=== PATIENT | female | born 1960 | race African-American/Black ===

== ENCOUNTER 2018-01-05 14:18 | Emergency (ER) | payer MEDICAID ==
[~2018-01-05] VITALS: Ht 162.6 cm; Wt 103.4 kg
[~2018-01-05 14:18] MED LIST: AZITHROMYCIN250 MG PO; DEBROX15 M1 RIGHT EAR; IBUPROFEN600 MG ORAL; IBUPROFEN600 MG PO; IBUPROFEN800 MG ORAL; NKM; NORCO 5-325 TA1 EACH ORAL; PHENERGAN/CODE120 ML PO; SILVADENE20 GM TP; UNKNOWN BP MED
[2018-01-05] MEDS ORDERED: traMADol 50mg tab ORAL ONE (15:00)
--- NOTE | 2018-01-05 15:18 | Emergency Room Report ---
History of Present Illness General Chief Complaint: Lower Extremity Injury Source: Patient Present Illness HPI 57-year-old female presents to the emergency department complaining of 10 out of 10 in severity localized pain to the right great toe since 4 days ago. Patient states that she is not sure if she stubbed her toe or not. Patient reports some mild swelling she states that she attempted to splint her foot herself. Pt. reports visible bruising. She denies history of diabetes or gout. Denies calf pain. Denies fevers or chills or recent open wounds in the area. Denies swelling or tenderness about the cuticle lines. Pain exacerbated with walking/ standing. Allergies: Coded Allergies: PENICILLINS (Verified Allergy, Severe, Anaphylaxis, 06/23/12) ASPIRIN (Verified Allergy, Intermediate, DYSTONIA, 06/23/12) ACETAMINOPHEN (Verified Adverse Reaction, Unknown, GI UPSET, 12/06/14) Patient History Past Medical History: see triage record Past Surgical History: none Pertinent Family History: none Now: No Reviewed Nursing Documentation: PMH: Agreed; PSxH: Agreed Nursing Documentation-PMH Past Medical History: No History, Except For Hx Hypertension: Yes Hx Pacemaker: No Hx Asthma: No Hx COPD: No Hx Diabetes: No Hx Cancer: No Hx Gastrointestinal Problems: Yes Hx Dialysis: No Hx Neurological Problems: No Hx Cerebrovascular Accident: No Hx Seizures: No Review of Systems All Other Systems: negative except mentioned in HPI Physical Exam Vital Signs Date Time Temp Pulse Resp B/P (MAP) Pulse Ox O2 Delivery O2 Flow Rate FiO2 01/05/18 14:34 98.6 82 16 114/79 99 Room Air 98.6 Sp02 EP Interpretation: reviewed, normal General Appearance: no apparent distress, alert, GCS 15, non-toxic Head: normocephalic, atraumatic ENT: hearing grossly normal, normal voice Neck: full range of motion Respiratory: chest non-tender, lungs clear, normal breath sounds, speaking full sentences Cardiovascular #1: regular rate, rhythm, no edema, normal capillary refill Musculoskeletal: back normal, normal range of motion, tender - TTP to the base of the Right great toe, bruising noted dorsally Neurologic: alert, oriented x3, responsive, motor strength/tone normal, sensory intact, speech normal, grossly normal Psychiatric: judgement/insight normal Skin: no rash, warm/dry, well hydrated, other - contusion to the base of the right great toe. Lymphatic: no adenopathy Medical Decision Making PA Attestation Dr. Recinos is my supervising Physician whom patient management has been discussed with. Diagnostic Impression: Primary Impression: Sprain of toe Qualified Codes: S93.509A - Unspecified sprain of unspecified toe(s), initial encounter ER Course 57-year-old female presents to the emergency department complaining of 10 out of 10 in severity localized pain to the right great toe since this morning. Patient states that she is not sure if she stubbed her toe or not. Patient reports some mild swelling she states that she attempted to splint her foot herself. Pt. reports visible bruising. She denies history of diabetes or gout. Denies fevers or chills or recent open wounds in the area. Denies swelling or tenderness about the cuticle lines. Pain exacerbated with walking/ standing. Ddx considered but are not limited to Fracture, dislocation, contusion, Sprain/ Strain/Spasm, arthritis, gout just to name a few. Vital signs: are WNL, pt. is afebrile H&PE are most consistent with musculoskeletal injury will perform imaging to r/ o fractures/dislocations. - no superficial sensitivity, i do not suspect gout at this time, no increased temperature to palpation. ORDERS: - X-ray Right foot - negative for fx, Dislocation, or significant soft tissue injury, per preliminary read in ED, and signed by JANET Milian, my supervising physician has reviewed, and agrees with my interpretation. ED INTERVENTIONS: - Tramadol PO -Cast Shoe ( Hard Sole) applied by unit aide tech. Pt. remains neurovascularly intact. --Patient is provided with a cane and instructed on its use DISCHARGE: At this time pt. is stable for d/c to home. Will provide printed patient care instructions, and any necessary prescriptions. Care plan and follow up instructions have been discussed with the patient prior to discharge. Other X-Ray Diagnostic Results Other X-Ray Diagnostic Results : X-Ray ordered: Xray Foot-Right # of Views/Limited Vs Complete: 3 View Indication: Pain EP Interpretation: Yes JANET Xray: Interpretation reviewed, by supervising MD, and agrees with findings. Interpretation: no dislocation, no soft tissue swelling, no fractures Impression: No acute disease Electronically Signed by: Tessy Milian PA-C Last Vital Signs Date Time Temp Pulse Resp B/P (MAP) Pulse Ox O2 Delivery O2 Flow Rate FiO2 01/05/18 15:04 98.6 01/05/18 14:34 82 16 114/79 99 Room Air Disposition: HOME, SELF-CARE Condition: Stable Scripts Ibuprofen* (MOTRIN*) 600 Mg Tablet 600 MG ORAL THREE TIMES A DAY, #20 TAB 0 Refills Prov: Tessy Milian 01/05/18 Referrals: [facility],REFERRING (PCP) Patient Instructions: Foot Sprain Additional Instructions: Take medications as directed. Follow up with a Primary Care Provider in 3-5 days, even if your symptoms have resolved. --Please review list of primary care clinics, if you do not already have a primary care provider Return sooner to ED if new symptoms occur, or current symptoms become worse. - Please note that this Emergency Department Report was dictated using dinCloudampoule filler and sealer technology software, occasionally this can lead to erroneous entry secondary to interpretation by the dictation equipment. Tessy Milian Jan 05, 2018 15:18
[2018-01-05] MEDS ORDERED: IBUPROFEN600 MG ORAL (15:46)
[2018-01-05 16:05] VITALS: BP 114/79
--- NOTE | 2018-01-05 17:01 | Diagnostic Imaging Report ---
Indication: Pain, status post fall Technique: 3 views right foot Comparison: none Findings: No acute fractures. No dislocations. The joint spaces are preserved. There is a small plantar spur Impression: Negative
== END 2018-01-05 16:05 | disposition home or self-care (01) ==
LOC: EMR 15:00
DX: S93.501A Unspecified sprain of right great toe, initial encounter (principal); X58.XXXA Exposure to other specified factors, initial encounter; Y93.9 Activity, unspecified; Y92.9 Unspecified place or not applicable; I10 Essential (primary) hypertension; Z88.0 Allergy status to penicillin; Z88.6 Allergy status to analgesic agent
CPT/HCPCS: 99283

== ENCOUNTER 2018-06-14 13:53 | Emergency (ER) | payer MEDICAID ==
[~2018-06-14] VITALS: Ht 160 cm; Wt 90.7 kg
--- NOTE | 2018-06-14 14:32 | NUR ---
ED Nurse Note: Pt came in after surgery on 06/09/18, edema noted on the right leg. Pt is complaining of pain in the rt leg. A + O x4. Ambulatory.
[2018-06-14 14:42] VITALS: BP 121/82
[2018-06-14] MEDS ORDERED: traMADol 50mg tab ORAL ONE (14:45)
--- NOTE | 2018-06-14 15:04 | NUR ---
ED Nurse Note: Pt went down to radiology.
--- NOTE | 2018-06-14 15:04 | Emergency Room Report ---
History of Present Illness General Chief Complaint: Edema Source: Patient (Murali Bowling) Present Illness HPI 58-year-old female patient presents the ER complaining of right foot pain and swelling for the past 4 days. Reports symptoms began after her colonoscopy. Denies calf pain. Denies taking blood thinner medication. Denies recent travel. Denies acute injury or trauma. Denies fever, chest pain, shortness of breath. Denies other acute symptoms. Reports pain with ambulation. Denies chest pain. Denies history of CHF. Denies breathing difficulties. (Murali Bowling) Allergies: Coded Allergies: PENICILLINS (Verified Allergy, Severe, Anaphylaxis, 06/23/12) ASPIRIN (Verified Allergy, Intermediate, DYSTONIA, 06/23/12) ACETAMINOPHEN (Verified Adverse Reaction, Unknown, GI UPSET, 12/06/14) Patient History Past Medical History: see triage record Now: No Reviewed Nursing Documentation: PMH: Agreed; PSxH: Agreed (Murali Bowling) Nursing Documentation-PMH Past Medical History: No History, Except For Hx Hypertension: Yes Hx Pacemaker: No Hx Asthma: No Hx COPD: No Hx Diabetes: No Hx Cancer: No Hx Gastrointestinal Problems: Yes Hx Dialysis: No Hx Neurological Problems: No Hx Cerebrovascular Accident: No Hx Seizures: No (Murali Bowling) Review of Systems All Other Systems: negative except mentioned in HPI (Murali Bowling) Physical Exam Vital Signs Date Time Temp Pulse Resp B/P (MAP) Pulse Ox O2 Delivery O2 Flow Rate FiO2 06/14/18 14:02 98.8 92 17 121/82 97 Room Air 06/14/18 14:42 100 Sp02 EP Interpretation: reviewed, normal General Appearance: well appearing, no apparent distress, alert, GCS 15, non- toxic Head: normocephalic, atraumatic Eyes: bilateral eye normal inspection, bilateral eye PERRL ENT: hearing grossly normal, normal pharynx, no angioedema, normal voice, uvula midline, moist mucus membranes Neck: full range of motion Respiratory: lungs clear, normal breath sounds, no rhonchi, no respiratory distress, no accessory muscle use, no wheezing, speaking full sentences Cardiovascular #1: regular rate, rhythm, no edema Cardiovascular #2: 2+ dorsalis pedis (R), 2+ dorsalis pedis (L) Musculoskeletal: back normal, digits/nails normal, gait/station normal, normal range of motion, swelling - Mild, other - NVI, cap refill less than 2 seconds, tender Neurologic: alert, oriented x3, responsive, motor strength/tone normal, sensory intact Psychiatric: mood/affect normal Skin: no rash (Murali Bowling) Medical Decision Making PA Attestation Dr. Kunz is my supervising Physician whom patient management has been discussed with. (Murali Bowling) Diagnostic Impression: Primary Impression: Edema of right foot ER Course Pt. presents to the ED c/o right foot pain and swelling. Ddx considered but are not limited to fracture, sprain, strain, contusion, dislocation, DVT, arthritis. No erythema, no warmth to touch, no fever, nontoxic appearing, low suspicion for septic joint. Soft compartments, no pulselessness, no pallor, no paresthesias, low suspicion for compartment syndrome at this time. Vital signs: are WNL, pt. is afebrile Ordered X-ray and pain medication. ER COURSE Provided with pain medication. An X-ray of the no acute disease, mild diffuse swelling noted per the preliminary reading. US of the RLE ordered. DOMINGO wrap and open toed shoe was applied to the right foot and was checked afterwards by me showing good alignment and support with distal neurovascular functioning intact. Cane provided. Patient instructed on RICE method: rest, ice, compression, elevation. Patient instructed on rest, ice and heat. Patient instructed to be WBAT At this time the patient is requesting to leave AGAINST MEDICAL ADVICE. States that her ride is leaving and she needs "to go". I believe that this patient has the capacity to make decisions on their own. I discussed with the patient the risks of leaving AMA. Some of these risks include delay in diagnosis and treatment, as well as worsening of symptoms, organ damage, and permanent disability or even . After discussing these risks with the patient. They continues to express their desire to want to leave AGAINST MEDICAL ADVICE. I encouraged the patient to return at any time, and that they will be welcome here in the emergency department to continue medical management. Patient states she will return tomorrow for ultrasound. - Please note that this Emergency Department Report was dictated using [employer] technology software, occasionally this can lead to erroneous entry secondary to interpretation by the dictation equipment. (Murali Bowling) Other X-Ray Diagnostic Results Other X-Ray Diagnostic Results : X-Ray ordered: right foot # of Views/Limited Vs Complete: 3 View Indication: Pain EP Interpretation: Yes PA Xray: Interpretation reviewed, by supervising MD, and agrees with findings. Interpretation: no dislocation, no fractures, other - Mild diffuse soft tissue swelling Impression: No acute disease PA Scribe Text Kin Bowling PA-C (Murali Bowling) Other X-Ray Diagnostic Results : Electronically Signed by: P Duncan documentation of Xray reviewed by me and is accurate, Amaury Kunz MD (Amaury Kunz MD) Last Vital Signs Date Time Temp Pulse Resp B/P (MAP) Pulse Ox O2 Delivery O2 Flow Rate FiO2 06/14/18 14:42 98.8 93 20 121/82 97 Room Air 06/14/18 14:42 100 (Murali Bowling) Disposition: ADMITTED INPATIENT Condition: Serious Referrals: [facility],REFERRING (PCP) Murali Bowling Jun 14, 2018 15:04 Amaury Kunz MD Jun 16, 2018 05:49
--- NOTE | 2018-06-14 15:27 | NUR ---
ED Nurse Note: Pt came back from radiology.
--- NOTE | 2018-06-14 15:29 | Diagnostic Imaging Report ---
Indication: Foot Pain Comparison: None Findings: 3 views of the right foot were obtained. No acute fractures, malalignment, erosions or periostitis are identified. Soft tissue swelling demonstrated nonspecific. Impression: No acute findings.
[2018-06-14 16:24] VITALS: BP 135/75
--- NOTE | 2018-06-14 16:25 | NUR ---
ED Nurse Note: Pt decided to sign AMA papers even after explaining to her risks and benefits. Pt could not wait for ultrasound procedure to be completed. Pt stated that she needs her ride home and her ride home cannot wait long. Pt stated that she will be back tomorrow. Gave her a copy of her signed AMA paperwork.
== END 2018-06-14 16:15 | disposition home or self-care (01) ==
LOC: EMR 14:30
DX: R60.0 Localized edema (principal); I10 Essential (primary) hypertension; Z88.0 Allergy status to penicillin; Z88.6 Allergy status to analgesic agent
CPT/HCPCS: 99283